=== PATIENT | male | born 1960 | race Caucasian/White ===

== ENCOUNTER 2017-11-21 08:14 | Day surgery (SDC) | payer MEDICARE ==
[2017-11-16 14:47] VITALS: BMI 27.3
[~2017-11-21 08:14] MED LIST: LACTATED RINGERS 1,000 ML IV SCH
[2017-11-21 09:07] VITALS: RESP 18; TEMP 98.6
[2017-11-21] MEDS ORDERED: LIDOCAINE 1% 20 ML VIAL (10MG/ML) FOR IV START INTRADERMA ONE (09:07)
[2017-11-21] MEDS ORDERED: PROPOFOL 10 MG/ML 20 ML VIAL IV ONE (09:46)
--- NOTE | 2017-11-21 10:06 | P.PCN ---
Date of Procedure: 11/21/17 Procedure(s) Performed: Procedure: Total colonoscopy. Preoperative diagnosis: Screening for neoplasia. Postoperative diagnosis: Exam within normal limits. Preparation: HalfLytely prep. Sedation: Was provided by anesthesia. Brief clinical history: The patient is a 57-year-old male with mental disadvantage and history of sarcoidosis who is scheduled for this evaluation for screening for neoplasia. His prior exam was in 2007. The patient has no abdominal complaints, bleeding or anemia. Procedure: With the patient on his left lateral decubitus position and after informed consent and adequate sedation, the perianal area was inspected and it did not show any fissures or fistulas. There were no masses felt on digital rectal examination. The Olympus CFQ 160LVideo colonoscope was then inserted in the rectum in the usual fashion and advanced to the cecum. The mucosa appeared healthy. No polyps or tumors were seen or any obvious diverticular disease or other pathology. I retroflexed the endoscope in the rectum before the endoscope was withdrawn. The patient tolerated the procedure well. Plan: The patient was reassured. I discussed with his mother as well. He will follow up with you as planned and I recommended repeat exam in 10 years.
[2017-11-21 10:12] VITALS: BP 106/70
[2017-11-21 10:31] VITALS: PULSE 74
== END 2017-11-21 10:44 | disposition home or self-care (01) ==
LOC: ORWHC2ENDO 08:14
DX: Z12.11 Encounter for screening for malignant neoplasm of colon (principal); J45.909 Unspecified asthma, uncomplicated; K21.9 Gastro-esophageal reflux disease without esophagitis; F99 Mental disorder, not otherwise specified; Z79.82 Long term (current) use of aspirin; Z79.899 Other long term (current) drug therapy; Z86.2 Personal history of diseases of the blood and blood-forming organs and certain disorders involving the immune mechanism; Z86.718 Personal history of other venous thrombosis and embolism
CPT/HCPCS: J2704; G0121

== ENCOUNTER → 2020-06-16 | Outpatient (CLI) | payer MEDICARE ==
--- NOTE | 2020-06-18 13:11 | P.ARTDOP ---
Arterial Doppler LOWER EXTREMITY ARTERIAL DOPPLER: DATE OF SERVICE: 06/16/2020 Reason for study: Bilateral leg pain. Doppler waveforms: Multiphasic bilaterally throughout. Pulse volume recording: []. Pressure gradients: None. Ankle-brachial indices: Greater than 1 bilaterally. Toe brachial indices: 0.96 on the right, 0.94 on the left Impression: Normal study.
== END | disposition home or self-care (01) ==
LOC: RADUSWWP 12:14
PROVIDERS: ATTEND Family Medicine
DX: R25.2 Cramp and spasm (principal)
CPT/HCPCS: 93922

== ENCOUNTER 2021-02-21 | Emergency (ER) | payer MEDICARE | END 2021-02-21 22:07 | disposition home or self-care (01) ==

== ENCOUNTER → 2024-09-11 | Outpatient (CLI) | payer MEDICARE ==
--- NOTE | 2024-09-11 23:27 | MR ---
EXAMINATION TYPE: MR lumbar spine wo con DATE OF EXAM: 09/11/2024 5:53 PM COMPARISON: None. CLINICAL INDICATION: Male, 64 years old with history of R94.131 ABNORMAL EMG, low back pain that radi ates down right leg. abnormal EMG. TECHNIQUE: Multiplanar, multisequence images of the lumbar spine were acquired. IV Contrast: mL (None, if empty) FINDINGS: Cord ends at the L1 level. Scoliosis is present. L5-S1: There is loss of disc height at this level. Vacuum disc phenomenon is present. No spinal canal stenosis. There is moderate bilateral foraminal narrowing. Some right exiting nerve root compression the foramen may be present. Correlate with the radicular symptoms L4-L5: There is loss of disc height is level. Residual disc bulge is present with anterior thecal sac flattening. There is some disc bulging into the far right lateral direction. Correlate with radicula r symptoms. Mild right paracentral anterior thecal sac compression is present. Right foraminal stenos is is present L3-L4: Disc space narrowing is present mild broad-based disc bulge is present No spinal canal stenosi s. Mild right foraminal stenosis is present. Mild facet hypertrophy is present. L2-L3: Mild broad-based disc bulge is present. Disc space narrowing is present. Facet hypertrophy is posterior lateral thecal sac compression. Some ligamentum flavum laxity is present. No spinal canal s tenosis. Neural foramen are patent. L1-L2: No focal disc herniation or significant disc bulge. No spinal canal stenosis. Neural foramen are patent. T12-L1: No focal disc herniation or significant disc bulge. No spinal canal stenosis. Neural forame n are patent. IMPRESSION: 1. Multilevel degenerative disc changes with narrowing of disc height. 2. Disc bulging present greatest L3-4 through L5-S1. 3. Severe foraminal stenosis is present L4-5 and L5-S1. 4. Some nerve root compression within the L5-S1 foramen appears to be present. [facility], , 09/11/2024 11:25 PM
== END | disposition home or self-care (01) ==
LOC: RADMRIMAIN 17:10
PROVIDERS: ATTEND Family Medicine
DX: M48.07 Spinal stenosis, lumbosacral region (principal); M51.379 Other intervertebral disc degeneration, lumbosacral region without mention of lumbar back pain or lower extremity pain; R94.131 Abnormal electromyogram [EMG]
CPT/HCPCS: 72148

== ENCOUNTER → 2024-12-28 | Outpatient (CLI) | payer MEDICARE | END | disposition home or self-care (01) | LOC: LABPAT 14:34 | PROVIDERS: ATTEND Orthopaedic Surgery | DX: M16.11 Unilateral primary osteoarthritis, right hip (principal) | CPT/HCPCS: 86850; 86900; 86901; 87070 ==